=== PATIENT | male | born 1960 | race Caucasian/White ===

== ENCOUNTER 2022-05-02 21:04 | Emergency (ER) | payer OTHER ==
[2022-05-02 21:52] LABS: HEMOGLOBIN 13.6 gm/dl (14.0-17.5); RED BLOOD COUNT 4.63 M/UL (4.20-5.50); WHITE BLOOD COUNT 7.3 K/UL (4.5-11.0)
== END 2022-05-03 00:38 | disposition home or self-care (01) ==
LOC: ER1 21:04
PROVIDERS: Physician Assistant
DX: K14.0 Glossitis (principal); N18.9 Chronic kidney disease, unspecified; I12.9 Hypertensive chronic kidney disease with stage 1 through stage 4 chronic kidney disease, or unspecified chronic kidney disease; K21.9 Gastro-esophageal reflux disease without esophagitis; G35 Multiple sclerosis; F17.210 Nicotine dependence, cigarettes, uncomplicated
CPT/HCPCS: 71045; 80053; 85025; 86140; 99283

== ENCOUNTER → 2022-06-16 | Outpatient (CLI) | payer OTHER | LOC: CT 09:00 | DX: R22.1 Localized swelling, mass and lump, neck (principal) | CPT/HCPCS: 36415; 82565 ==

== ENCOUNTER → 2022-06-24 | Outpatient (CLI) | payer OTHER | LOC: CT 14:00 | DX: R22.1 Localized swelling, mass and lump, neck (principal) | CPT/HCPCS: 70491; Q9967 ==